=== PATIENT | male | born 1995 | race American Indian/Alaskan Native ===

== ENCOUNTER 2017-04-05 14:35 | Emergency (ER) | payer SELFPAY ==
[2017-04-05 15:55] LABS: Basophils % (Auto) 0.8 % (0.0-1.8); Hematocrit 45.2 % (35.5-45.6); Hemoglobin 15.3 gm/dl (11.8-15.2); Mean Corpuscular HGB Conc 34 % (32-34); Mean Corpuscular Hemoglobin 32 pg (28-32); Mean Corpuscular Volume 93 fl (84-94); Platelet Count 211 K/mm3 (140-440); Red Blood Count 4.85 M/mm3 (3.65-5.03); Red Cell Distribution Width 12.9 % (13.2-15.2); White Blood Count 6.5 K/mm3 (4.5-11.0)
[2017-04-05 16:07] LABS: Anion Gap 18 mmol/L; Blood Urea Nitrogen 11 mg/dL (9-20); Calcium 9.5 mg/dL (8.4-10.2); Carbon Dioxide 26 mmol/L (22-30); Glucose 78 mg/dL (75-100); Sodium 138 mmol/L (137-145)
--- NOTE | 2017-04-05 16:44 | Emergency Department Report ---
HPI - General Chief Complaint: Psych Time Seen by Provider: 04/05/17 16:19 - HPI HPI: This is a 21-year-old Afro-[place] male who presents to the emergency department with the need for a mental health evaluation. When asked what brings the patient into the hospital, he says "my family made me come because they think I'm crazy." The patient goes on tangential rants saying that he works a lot and that the current lifestyle he wants to live. There are reports that the patient is hearing God talked to him. He did mention to me that he receives "biblical instructions on how to leave this earth." The patient is easily agitated and often raising his voice. He denies any suicidal ideations. He denies any visual hallucinations. There is no recorded medical or psychiatric history. ED Past Medical Hx - Past Medical History Previous Medical History?: No - Surgical History Past Surgical History?: No - Social History Smoking Status: Current Every Day Smoker Substance Use Type: None - Medications Home Medications: Home Medications Medication Instructions Recorded Confirmed Last Taken Type No Known Home Medications [No 04/05/17 04/05/17 Unknown History Reported Home Medications] ED Review of Systems ROS: Stated complaint: AMS/HOMICIDAL Other details as noted in HPI Comment: All other systems reviewed and negative Constitutional: denies: chills, fever Eyes: denies: eye pain, eye discharge, vision change ENT: denies: ear pain, throat pain Respiratory: denies: cough, shortness of breath, wheezing Cardiovascular: denies: chest pain, palpitations Gastrointestinal: denies: abdominal pain, nausea, diarrhea Genitourinary: denies: urgency, dysuria Musculoskeletal: denies: back pain, joint swelling, arthralgia Skin: denies: rash, lesions Neurological: denies: headache, weakness, paresthesias Psychiatric: auditory hallucinations. denies: visual hallucinations, suicidal thoughts Physical Exam - Physical Exam Vital Signs: Vital Signs 04/05/17 04/05/17 14:47 15:29 Temperature 98.4 F 98.4 F Pulse Rate 100 H 100 H Respiratory 18 18 Rate Blood Pressure 142/92 Blood Pressure 142/92 [Right] O2 Sat by Pulse 97 100 Oximetry Physical Exam: GENERAL: The patient is well-developed well-nourished. HEENT: Normocephalic. Atraumatic. Extraocular motions are intact. Patient has moist mucous membranes. Pupils equal reactive to light. Vitals. NECK: Supple. Trachea is midline. CHEST/LUNGS: Clear to auscultation. There is no respiratory distress noted. HEART/CARDIOVASCULAR: Regular. There is no tachycardia. There is no gallop rub or murmur. ABDOMEN: Abdomen is soft, nontender. Patient has normal bowel sounds. There is no abdominal distention. SKIN: There is no rash. There is no edema. There is no diaphoresis. NEURO: The patient is awake, alert, and oriented. The patient is cooperative. The patient has no focal neurologic deficits. Cranial nerves II through XII grossly intact. MUSCULOSKELETAL: There is no tenderness or deformity. There is no limitation range of motion. There is no evidence of acute injury. PSYCH: Patient has pressured speech, tangential thoughts and is easily angered. ED Course Vital Signs 04/05/17 04/05/17 14:47 15:29 Temperature 98.4 F 98.4 F Pulse Rate 100 H 100 H Respiratory 18 18 Rate Blood Pressure 142/92 Blood Pressure 142/92 [Right] O2 Sat by Pulse 97 100 Oximetry ED Medical Decision Making - Lab Data Result diagrams: 04/05/17 15:37 04/05/17 15:37 - Medical Decision Making 21-year-old male presents for a mental health evaluation. The patient says that his family is wrong but they sent him in because they think he is crazy. Patient believes that there is nothing wrong with him but he is easily angered and starts yelling when you ask him any questions. On top of that he starts going on tangential rants. The patient denies any suicidal or homicidal ideations at this point, I would not be surprised if family had said that he had a threatening nature towards them recently. The patient got even worse when he was being evaluated by the crisis therapist and required some chemical sedation. For all these reasons the patient has been made a 1013. His vital signs and stable throughout his ED course. His labs are unremarkable and do not show any etiology of the patient's symptoms. He is medically cleared for psychiatric placement. - Differential Diagnosis schizophrenia, schizoaffective, bipolar disorder, mood disorder Critical Care Time: No Critical care attestation.: If time is entered above; I have spent that time in minutes in the direct care of this critically ill patient, excluding procedure time. ED Disposition Clinical Impression: Psychosis Qualifiers: Psychosis type: unspecified psychosis type Qualified Code(s): F29 - Unspecified psychosis not due to a substance or known physiological condition Disposition: DC/TX PSY HOSP/PSY UNIT Is pt being admited?: No Condition: Stable Referrals: PRIMARY CARE, [Primary Care Provider] - 3-5 Days Time of Disposition: 18:54
[2017-04-05 16:51] LABS: Urine Drugs of Abuse Note Disclamer
[2017-04-05 17:21] LABS: Bilirubin,Urine NEG (Negative); Blood,Urine NEG (Negative); Ketones,Urine NEG (Negative); Leukocyte Esterase,Urine NEG (Negative); Nitrite,Urine NEG (Negative); Protein,Urine <15 mg/dL mg/dL (Negative); Urobilinogen,Urine < 2.0 mg/dL (<2.0)
[2017-04-05] MEDS ORDERED: HALDOL IM ONE (18:16)
--- NOTE | 2017-04-06 12:07 | Consultation ---
History of Present Illness - Reason for Consult Consult date: 04/06/17 Reason for consult: Mental Health Evaluation Requesting physician: JOSÉ MIGUEL GILL - Chief Complaint Chief complaint: "I am ready to go" - History of Present Psychiatric Illness This is a 21-year-old Afro-[place] male who presents to the emergency department with the need for a mental health evaluation. Today patient is hyper verbal, cooperative, but delusional with a tangential thought process. He stated that he isn't crazy, but have a lot of energy at this time. He stated that he slept a total of 12 hours in the last 4 days. Started talking about how he live in the "light" and mankind is in "darkness." After redirecting the patient and going to another room, he started whispering when asked questions. He stated, "I don't want anyone to hear my answers." Patient continue to stated that he is "okay" and want to leave. I spoke with his Karen and she stated that this behavior occurred a year ago and resolved. She stated that he does smoke marijuana often and drink alcohol occasionally. He denies SI/HI's, AVH's, or a poor appetite. Medications and Allergies Allergies Allergy/AdvReac Type Severity Reaction Status Date / Time No Known Allergies Allergy Unverified 04/05/17 15:28 Home Medications Medication Instructions Recorded Confirmed Last Taken Type No Known Home Medications [No 04/05/17 04/05/17 Unknown History Reported Home Medications] Past psychiatric history - Past Medical History Past Medical History: No medical history Past Surgical History: No surgical history - past Psychiatric treatment and history psychiatric treatment history: Inpatient 2010. Dad Bipolar. Mental Status Exam - Vital signs Last Vital Signs Temp 98.4 F 04/05/17 15:29 Pulse 100 H 04/05/17 15:29 Resp 16 04/06/17 07:59 BP 142/92 04/05/17 15:29 Pulse Ox 99 04/06/17 07:59 - Exam Narrative exam: ROS: (+) manic, (+) grandiose MSE: Appearance: cooperative, calm Behavior: good eye contact, hyper verbal Speech: regular rate and tone Mood: "okay" Affect: congruent to mood Thought Process: tangential Thought Content: denies SI/HI's and AVH's Motor Activity: ambulatory Cognition: a/ox 3 Insight: limited Judgment: limited Results Result Diagrams: 04/05/17 15:37 04/05/17 15:37 Abnormal lab results 04/05/17 Range/Units 15:37 Hgb 15.3 H (11.8-15.2) gm/dl RDW 12.9 L (13.2-15.2) % [place] % (Auto) 12.3 H (0.0-7.3) % All other labs normal. Assessment and Plan Assessment and plan: Impression: Unspecified Mood DO. This is a 21-year-old Afro-[place] male who presents to the emergency department with the need for a mental health evaluation. Today patient is hyper verbal, cooperative, but delusional with a tangential thought process. He stated that he isn't crazy, but have a lot of energy at this time. He stated that he slept a total of 12 hours in the last 4 days. He denies SI/HI's and AVH's. DD: R/O Bipolar Recommendation/Plan: Continue 1013 with placement to inpatient psy services. Start Zyprexa 5 mg PO HS for psychosis/osvaldo, loading dose of Depakote 1000 mg HS PO for mood, and Cogentin 0.5 mg PO HS for EPS Prevention. Discussed possible metabolic side effects of Zyprexa with patient.
[2017-04-06 18:28] LABS: Alanine Aminotransferase 24 units/L (7-56); Alkaline Phosphatase 87 units/L (35-129)
[2017-04-06 21:12] VITALS: BP 132/74
[2017-04-06] MEDS ORDERED: COGENTIN PO SCH (22:00)
== END 2017-04-06 22:05 ==
LOC: EEVIPCON 14:35 → ED 14:35
DX: F29 Unspecified psychosis not due to a substance or known physiological condition (principal); F17.200 Nicotine dependence, unspecified, uncomplicated
CPT/HCPCS: 36415; 80048; 80307; 81001; 84075; 84450; 84460; 85025; 96372; 99285; G0480; J1630; 80320